=== PATIENT | female | born 1980 | race Caucasian/White ===

== ENCOUNTER 2024-05-20 12:37 | Emergency (ER) | payer MEDICAID ==
[~2024-05-20] VITALS: Ht 157.5 cm; Wt 68.2 kg
[2024-05-20 12:43] VITALS: TEMP 98.6
[2024-05-20 15:38] VITALS: BP 150/89; PULSE 68
== END 2024-05-20 15:38 | disposition home or self-care (01) ==
LOC: COL.ER 12:37
DX: S60.031A Contusion of right middle finger without damage to nail, initial encounter (principal); S60.041A Contusion of right ring finger without damage to nail, initial encounter; F17.200 Nicotine dependence, unspecified, uncomplicated; X58.XXXA Exposure to other specified factors, initial encounter; Y99.0 Civilian activity done for income or pay